=== PATIENT | female | born 1950 | race Caucasian/White ===

== ENCOUNTER 2020-11-17 12:06 | Observation (INO) | payer MEDICARE, SELFPAY ==
[2020-11-17] VITALS (14 sets, daily range): BP systolic 76–168; BP diastolic 42–74; PULSE 41–103; RESP 16–19; TEMP 36.3–37; O2SAT 94–98; BMI 29.5
--- NOTE | 2020-11-17 12:21 | EKG12_ITS ---
Test Reason : Blood Pressure : / mmHG Vent. Rate : 099 BPM Atrial Rate : 099 BPM P-R Int : 150 ms QRS Dur : 072 ms QT Int : 340 ms P-R-T Axes : 039 033 035 degrees QTc Int : 436 ms Normal sinus rhythm Normal ECG Confirmed by SUNDAR CRUZ, JOSE MANUEL ([id number]), make up editor OSCAR RAMSEY ([id number]) on 11/21/2020 1:36:59 PM Referred By: IVANA Confirmed By:JOSE MANUEL KWOK MD
--- NOTE | 2020-11-17 12:22 | ED.VIS.CHEST ---
HPI History of Present Illness Chief Complaint: Chest Pain Informant: patient Onset/Context/Timing Onset: Today Activity at onset: gradual Quality: Positive for Heaviness and Tightness Location: Substernal Current Severity: Moderate Maximum Severity: Moderate Narrative Narrative: Patient present secondary to chest pain. She states she has had chest pain all day today, but seems to be worsening as the day goes. She describes it as heavy and tight in the center of her chest. She states it then seems to go down into her abdomen somewhat. She denies shortness of breath. No previous cardiac history. She has had stress test in the past that were normal. [facility] Medical History Hyperlipidemia Hypertension Home Medications aspirin 81 mg PO DAILY 11/17/20 [History Last Taken Unknown] atorvastatin 20 mg PO QHS 11/17/20 [History Last Taken Unknown] icosapent ethyl [Vascepa] 2 g PO BID 11/17/20 [History Last Taken Unknown] lisinopril 10 mg PO DAILY 11/17/20 [History Last Taken Unknown] Allergy/AdvReac Type Severity Reaction Status Date / Time No Known Allergies Allergy Verified 11/17/20 12:07 Surgical History History of hysterectomy Social History Smoking Status: Former smoker ROS ROS ED Constitutional Constitutional ED: Denies chills or fever(s) Eyes Eyes: Denies change in vision ENT ENT ED: Denies sore throat Cardiovascular Cardiovascular: Reports chest pain Respiratory/Chest Respiratory/Chest: Denies cough or dyspnea Gastrointestinal Gastrointestinal: Reports abdominal pain; Denies diarrhea, nausea or vomiting Genitourinary Genitourinary ED: Denies dysuria Musculoskeletal Musculoskeletal: Denies back pain Integumentary Denies rash Neurologic Neurologic: Denies headache(s) or weakness Allergic/Immunologic Allergic/Immunologic ED: Denies urticaria EXAM Physical Exam Const Vital Signs: 11/17/20 12:08 11/17/20 12:12 11/17/20 12:32 Temperature 98.2 F Temperature Source Oral Pulse Rate 103 H Respiratory Rate 18 Respiratory Effort Normal Non-Labored Blood Pressure 168/74 H Blood Pressure Mean 105 Pulse Ox 97 98 Oxygen Delivery Method Room Air Room Air 11/17/20 14:45 Temperature Temperature Source Pulse Rate 70 Respiratory Rate 19 H Respiratory Effort Blood Pressure 138/59 H Blood Pressure Mean 85 Pulse Ox 97 Oxygen Delivery Method Room Air Positive well nourished and well developed General Appearance ED: well developed HEENT Reports normocephalic and head/scalp atraumatic Eyes PERRL and EOMs intact bilaterally Neck supple Chest Wall inspection of chest normal and palpation of chest normal Resp normal respiratory effort and clear to auscultation bilaterally Cardio regular rate and regular rhythm GI GI Narrative: Mild epigastric tenderness to palpation. No guarding or rebound. Hypoactive but present bowel sounds. Palpation: soft Extremity normal to inspection Neuro oriented x3 and no sensory deficits noted Sensorium / Orientation: alert Motor Exam: strength 5/5 throughout Psych mental status grossly normal Skin no rashes or lesions noted Heart Score History: Moderately Suspicious ECG: Normal Age: >/= 65 years Risk Factors: 1 or 2 Risk Factors Troponin: </= Normal Limit Score: 4 MDM MDM MDM Narrative Medical decision making narrative: Patient was given aspirin on arrival. She was given morphine and Zofran for pain. Lab work, chest x-ray, EKG obtained. Lab Data Attestation: I reviewed the patient's lab results. Labs: Laboratory Results - last 24 hr 11/17/20 11/17/20 11/17/20 12:22 12:22 12:22 WBC 13.2 H RBC 4.30 Hgb 12.7 Hct 38.8 MCV 90.2 MCH 29.5 MCHC 32.7 RDW Std Deviation 38.6 RDW Coeff of Na 11.8 Plt Count 305 MPV 9.2 Immature Gran % (Auto) 0.400 Neut % (Auto) 83.1 H Lymph % (Auto) 8.5 L Kane % (Auto) 6.9 Eos % (Auto) 0.8 Baso % (Auto) 0.3 Absolute Neuts (auto) 11.0 H Absolute Lymphs (auto) 1.12 Nucleated RBC % 0 Sodium 139 Potassium 3.8 Chloride 105 Carbon Dioxide 26.0 Anion Gap 8 BUN 19 H Creatinine 0.79 Estim Creat Clear Calc 39.50 Est GFR (MDRD) Af Amer 92 Est GFR (MDRD) Non-Af 76 BUN/Creatinine Ratio 23.9 H Glucose 121 H Calcium 9.1 Total Bilirubin 0.60 Direct Bilirubin 0.13 AST 20 ALT 34 Alkaline Phosphatase 76 Troponin I High Sens 7 Total Protein 7.4 Albumin 4.0 Globulin 3.4 Lipase 333 11/17/20 14:10 WBC RBC Hgb Hct MCV MCH MCHC RDW Std Deviation RDW Coeff of Na Plt Count MPV Immature Gran % (Auto) Neut % (Auto) Lymph % (Auto) Kane % (Auto) Eos % (Auto) Baso % (Auto) Absolute Neuts (auto) Absolute Lymphs (auto) Nucleated RBC % Sodium Potassium Chloride Carbon Dioxide Anion Gap BUN Creatinine Estim Creat Clear Calc Est GFR (MDRD) Af Amer Est GFR (MDRD) Non-Af BUN/Creatinine Ratio Glucose Calcium Total Bilirubin Direct Bilirubin AST ALT Alkaline Phosphatase Troponin I High Sens 7 Total Protein Albumin Globulin Lipase Radiography Chest X-Ray - ED: 1 View, Read by ED Physician, Normal, Heart, Lungs and Mediastinum Diagnostic Testing: Radiology Impression Chest X-Ray 11/17/20 12:31 IMPRESSION: Normal x-ray examination of the chest. Electronically Signed: Endy Liz MD at 12:46 EDT , Service support , EKG Initial EKG: Attestation: I personally reviewed and interpreted this EKG as follows: Interpretation: Sinus Rhythm (Sinus at 99 with no acute ischemia.) Follow-up EKG: Attestation: I personally reviewed and interpreted this EKG as follows: Interpretation: Sinus Rhythm (Sinus 81 with no acute ischemia.) Treatment and Re-Evaluation Comments:: Initial EKG is unremarkable. Troponin returns normal at 7. Lab work otherwise is unremarkable including LFTs and lipase. Chest x-ray per my interpretation reveals no acute abnormalities. Radiology interpretation is reviewed. On repeat exam patient states she had no significant provement after aspirin, morphine, and Zofran. At that point she is given a GI cocktail and repeat troponin obtained. Repeat troponin is negative. Patient reports no improvement with a GI cocktail. Repeat EKG at this time is unremarkable. Patient be given a dose of Dilaudid for pain control. I was discussed with hospitalist regarding observation for cycling of enzymes and further evaluation. Discharge Plan Triage Chief Complaint: Chest Pain ED Provider: Raisa Chew Dx/Rx/DC Orders Clinical Impression: Chest pain Prescriptions: No Action atorvastatin 20 mg Tablet 20 mg PO QHS RF: 0 lisinopril 10 mg Tablet 10 mg PO DAILY RF: 0 aspirin 81 mg Tablet 81 mg PO DAILY RF: 0 icosapent ethyl [Vascepa] 1 gram Capsule 2 g PO BID RF: 0 Primary Care Provider: Laura Gracia Referrals: Laura Gracia, [Primary Care Provider] - Disposition Disposition: Acute Care Hospital [facility]
[2020-11-17 12:30] LABS: Absolute Lymphocyte Count 1.12 X10^3/uL (0.83-4.51); Basophil# 0.04 X10^3/uL; Basophil% 0.3 % (0-1); Eosinophil# 0.11 X10^3/uL; Eosinophils% 0.8 % (0-5); Hematocrit 38.8 % (37-47); Hemoglobin 12.7 g/dL (12.0-15.0); Lymphocyte # 1.12 X10^3/ul (0.83-4.51); Lymphocyte % 8.5 % (19-41); Mean Corp Hgb Conc 32.7 g/dL (32-36); Mean Corpuscular Hgb 29.5 pg (27.0-32.0); Mean Corpuscular Volume 90.2 fL (81-99); Mean Platelet Vol. 9.2 fl (6.2-12.0); Monocyte# 0.91 X10^3/uL; Monocyte% 6.9 % (0-10); NRBC Flagged by Analyzer 0 % (0-5); Neutrophil # 10.98 X10^3/uL (2.7-7.7); Neutrophil % 83.1 % (47-70); Platelet Count 305 K/mm3 (150-450); RBC Distribution Width CV 11.8 % (11.6-14.6); RBC Distribution Width SD 38.6 fl (35.1-43.9); White Blood Count 13.2 K/mm3 (4.4-11.0)
--- NOTE | 2020-11-17 12:31 | RAD_ITS ---
STUDY: X-RAY CHEST REASON FOR EXAM: Female, 70 years old. Chest pain TECHNIQUE: Single AP portable view of the chest. COMPARISON: None. FINDINGS: EKG electrodes are seen. The lungs are clear and expanded. There is no demonstrated pleural abnormality. Normal size heart. Normal mediastinum and annabelle. Normal visualized pulmonary arteries. There is atherosclerotic calcification of the aortic arch with tortuosity. There are degenerative changes of the visualized thoracic spine. Normal visualized ribs, clavicles, and shoulders. There is no demonstrated abnormality of the visualized soft tissue structures of the upper abdomen. RAD/Chest 1 View (Portable) IMPRESSION: Normal x-ray examination of the chest. Electronically Signed: Endy Liz MD at 12:46 EDT , Service support ,
[2020-11-17] MEDS: Ondansetron 4 MG/2 ML Vial IV ×2 (12:32→21:35)
[2020-11-17] MEDS: Morphine 4 MG/ML Syringe IV (12:32)
[2020-11-17] MEDS: Aspirin 81 MG TAB.CHEW 324 MG PO (12:32)
[2020-11-17] MEDS: 0.9% Normal Saline 1,000 ML 150 ML IV (12:39)
[2020-11-17 12:47] LABS: AST(SGOT) 20 U/L (15-37); Alanine Aminotransfer ALT/SGPT 34 U/L (13-56); Alkaline Phosphatase 76 U/L (45-117); Bilirubin, Direct 0.13 mg/dL (0.00-0.30); Globulin 3.4 g/dL (2.2-4.2); Protein, Total 7.4 g/dL (6.4-8.2)
[2020-11-17 12:50] LABS: Anion Gap 8 (5-15); BUN 19 mg/dL (7-18); BUN/Creat Ratio 23.9 RATIO (10-20); Calcium,Total 9.1 mg/dL (8.5-10.1); Chloride 105 mmol/L (98-107); Creatinine, Serum 0.79 mg/dL (0.55-1.02); EST Glomerular Filtration Rate 76 mL/min (>60); Est Glom Filt Rate - Afr Amer 92 mL/min (>60); Glucose 121 mg/dL (74-106); Lipase 333 U/L (73-393); Potassium 3.8 mmol/L (3.5-5.1); Sodium Level 139 mmol/L (136-145); Troponin-I HS 7 pg/mL (3.0-54.0)
--- NOTE | 2020-11-17 14:05 | EKG12_ITS ---
Test Reason : Blood Pressure : / mmHG Vent. Rate : 081 BPM Atrial Rate : 081 BPM P-R Int : 164 ms QRS Dur : 072 ms QT Int : 378 ms P-R-T Axes : 042 044 034 degrees QTc Int : 439 ms Normal sinus rhythm Normal ECG Confirmed by SUNDAR CRUZ, JOSE MANUEL ([id number]), development editor OSCAR RAMSEY ([id number]) on 11/21/2020 1:37:13 PM Referred By: IVANA Confirmed By:JOSE MANUEL KWOK MD
[2020-11-17] MEDS: Mag Hydrox/Al Hydrox/Simeth 30 ML UDC PO ×2 (14:10→20:16)
[2020-11-17 14:31] LABS: Troponin-I HS 7 pg/mL (3.0-54.0)
[2020-11-17] MEDS: HYDROmorphone 0.5 MG/0.5 ML SYRINGE IV (14:53)
--- NOTE | 2020-11-17 16:00 | ECHOD_ITS ---
Reason For Study: Murmur Procedure This was a 2D Doppler, Color Flow transthoracic echocardiogram. Exam performed in department. Left Ventricle Normal left ventricle. The estimated ejection fraction is EF 55-60 %. Right Ventricle Normal right ventricle. Normal systolic function. Atria Normal left atrium. Normal right atrium. Mitral Valve There is mild mitral annular calcification. Trivial mitral valve insufficiency. Tricuspid Valve Normal tricuspid valve. Trivial tricuspid valve insufficiency. Aortic Valve Mild focal aortic valve calcification. Mild (1+) aortic valve insufficiency. Pulmonic Valve The pulmonic valve is not well visualized. Great Vessels Normal aortic root. Pericardium/Pleural No pericardial effusion. MMode/2D Measurements & Calculations LVIDd: 4.7 cm IVSd: 0.78 cm Ao root diam: 3.1 cm LVIDs: 2.7 cm LVPWd: 0.82 cm LA dimension: 3.3 cm RVDd: 3.3 cm FS: 43.1 % LAV(MOD-bp): 32.8 ml LA A4 area: 14.9 cm2 RA A4 area: 10.0 cm2 LAV(MOD-bp) Indexed: 19.3 ml/m2 LAV(MOD-sp2): 27.4 ml LAV(MOD-sp4): 37.3 ml Time Measurements MV dec time: 0.24 sec Doppler Measurements & Calculations MV E max bryon: 103.0 cm/sec Lat Peak E' Bryon: 6.4 cm/sec Med Peak E' Bryon: 6.0 cm/sec MV A max bryon: 142.4 cm/sec E/E' lat: 16.1 E/E' med: 17.2 MV E/A: 0.72 MV V2 max: 170.5 cm/sec MV P1/2t max bryon: 136.8 cm/sec Ao V2 max: 213.8 cm/sec MV max P.6 mmHg MV P1/2t: 60.3 msec Ao max P.3 mmHg MV V2 mean: 93.5 cm/sec MV dec slope: 664.7 cm/sec2 MV mean P.1 mmHg MVA(P1/2t): 3.7 cm2 MV V2 VTI: 40.3 cm AI max bryon: 380.2 cm/sec LV V1 max: 142.9 cm/sec PA V2 max: 116.5 cm/sec AI max P.8 mmHg LV V1 max P.2 mmHg AI dec slope: 311.0 cm/sec2 AI P1/2t: 358.0 msec ECHO/Echo Complete Interpretation Summary The estimated ejection fraction is EF 55-60 %. Normal LV systolic function Mild AI No prior echo to compare Ordering Physician: Samantha Vogel Referring Physician: Laura Gracia Performed By: Maykel Patton RCS
--- NOTE | 2020-11-17 16:17 | PCS.PANDOC ---
PANDEMIC DOCUMENTATION INITIATED: Date: 10/16/2020 Time: 190
--- NOTE | 2020-11-17 17:31 | HP.PCM.HOS_ITS ---
[facility] - General General Date of Admission: 11/17/20 HPI Narrative LAY BERNARD, is a 70 F who presented to the emergency department [facility] on 11/17/2020 with a chief complaint of chest pain. She reports that it started this morning when she got out of bed and describes it as heavy and in the center of her chest. It intermittently radiates to her abdomen but does not radiate to her arms and neck or jaw. She denies any relieving or exacerbating activities. She does complain of some intermittent nausea that is associated but no vomiting. She has not had any shortness of breath, fatigue, or diaphoresis. She states she walks approximately 3 miles at night and has had no symptoms while she does this. She states she has had this in the past but never quite to the intensity that she has now. She has had a stress test in the past when she has had this symptom and they have been negative. She states her most recent stress test was several years ago but she is unclear of the date. She states that she had it done at [facility]. She has a past medical history of hypertension and hyperlipidemia but no personal history of coronary disease. She does have a family history of coronary disease in her father, sibling, and nephew. Her vital signs in the emergency department were unremarkable. Her CBC shows a mild white count elevation at 13.2 but is otherwise unremarkable. Her CMP is unremarkable. Her serum troponin have been cycled and were negative x2. Her lipase is within normal limits. A chest x-ray was performed and was unremarkable. She does have a remote history of tobacco abuse. She reports she quit smoking approximately 5 years ago but did smoke 1 pack/day for approximately 25 years. To be admitted to PCU for further cardiac work-up. [facility] Medical History Hyperlipidemia Hypertension Home Medications aspirin 81 mg PO QHS 11/17/20 [History Last Taken Unknown] atorvastatin 20 mg PO QHS 11/17/20 [History Last Taken Unknown] icosapent ethyl [Vascepa] 2 g PO BID 11/17/20 [History Last Taken Unknown] lisinopril 10 mg PO QHS 11/17/20 [History Last Taken Unknown] Allergy/AdvReac Type Severity Reaction Status Date / Time No Known Allergies Allergy Verified 11/17/20 12:07 Family History (Updated 11/17/20 @ 17:[address] Samantha Vogel DO) Other CAD (coronary artery disease) Heart disease Hypertension Surgical History History of hysterectomy Social History (Updated 11/17/20 @ 17:[address] Samantha Vogel DO) Smoking Status: Heavy Smoker (>10/day) how long ago did patient quit smokin years alcohol intake: current alcohol intake frequency: holidays/special occasions only substance use type: does not use ROS Constitutional Constitutional: Denies anorexia, change in weight, chills, fatigue, fever(s), malaise, night sweats, weakness or other Eyes Eyes: Denies blurry vision, change in eye color, change in vision, discharge from eye(s), double vision, erythema, eye pain, loss of vision or other ENT HEENT: Denies abnormal hearing, dysphagia, ear pain, epistaxis, headache(s), hearing loss, nasal congestion, nasal discharge, post nasal drip, sinus pressure, sore throat or other Cardiovascular Cardiovascular: Reports chest pain; Denies claudication, dyspnea on exertion, edema, lightheadedness, orthopnea, palpitations, paroxysmal nocturnal dyspnea, rapid heart rate, syncope or other Respiratory/Chest Respiratory/Chest: Denies cough, dyspnea, excessive phlegm production, hemoptysis, productive cough, shortness of breath at rest, shortness of breath with exertion, wheezing or other Gastrointestinal Gastrointestinal: Reports nausea Genitourinary Genitourinary: Denies burning urination, difficulty urinating, dysuria, hematuria, nocturia, urinary frequency, urinary hesitancy, urinary incontinence, urinary urgency or other Musculoskeletal Musculoskeletal: Denies arthralgias, back pain, joint pain, joint stiffness, joint swelling, myalgias, neck pain or other Neurologic Neurologic: Denies abnormal gait, abnormal speech, confusion, disequilibrium, d izziness, focal weakness, headache(s), numbness, paresthesias, seizure-like activity, seizures, syncope, tingling, tremor(s) or other Psychiatric Psychiatric: Denies anxiety, depression, homicidal ideation, suicidal ideation or other Endocrine Endocrinology: Denies change in body appearance, cold intolerance, excessive sweating, heat intolerance, polydipsia, polyuria or other Hematologic/Lymphatic Hematologic/Lymphatic: Denies anemia, easy bleeding, easy bruising, lymphadenopa thy or other Allergic/Immunologic Allergic/Immunologic: Denies rhinitis, hives, eczemia, asthma or other Vital Signs Vital Signs Vital Signs: 11/17/20 12:08 11/17/20 12:12 11/17/20 12:32 Temperature 98.2 F Temperature Source Oral Pulse Rate 103 H Respiratory Rate 18 Respiratory Effort Normal Non-Labored Blood Pressure 168/74 H Blood Pressure Mean 105 Blood Pressure Source Blood Pressure Position Blood Pressure Location Pulse Ox 97 98 Oxygen Delivery Method Room Air Room Air 11/17/20 14:45 11/17/20 15:16 11/17/20 16:05 Temperature 97.8 F 97.3 F L Temperature Source Temporal Oral Pulse Rate 70 73 83 Respiratory Rate 19 H 16 18 Respiratory Effort Blood Pressure 138/59 H 129/65 H 140/57 H Blood Pressure Mean 85 86 84 Blood Pressure Source Monitor Blood Pressure Position Semi-Fowlers Blood Pressure Location Right Arm Pulse Ox 97 97 95 Oxygen Delivery Method Room Air Room Air 11/17/20 16:30 Temperature Temperature Source Pulse Rate 75 Respiratory Rate Respiratory Effort Blood Pressure Blood Pressure Mean Blood Pressure Source Blood Pressure Position Blood Pressure Location Pulse Ox Oxygen Delivery Method Weight Weight: 70.76 kg Body Mass Index (BMI) 29.5 Physical Exam Const alert, oriented x3 and no apparent distress Constitutional Narrative: Overweight, older white female sitting up in bed, at bedside, appears comfortable, nontoxic General Appearance: cooperative HEENT normocephalic, head/scalp atraumatic, hearing grossly normal bilaterally, moist oral mucous membranes and oropharynx normal; Negative for dentition normal HEENT Narrative: Dentures in place, no thrush, Mallampati 2 Mouth: oral and palatal mucosa normal Eyes PERRL, EOMs intact bilaterally and conjunctivae normal Neck no lymphadenopathy, supple, no JVD and no carotid bruits Resp normal respiratory effort, no retractions, no use of accessory muscles and clear to auscultation bilaterally Auscultation: Negative for crackles, rales, rhonchi or wheezes Cardio regular rate, regular rhythm, S1 normal heart sound, S2 normal heart sound, no rub, no gallops, no clicks and no JVD Cardio Narrative: 3 out of 6 systolic murmur GI normal to inspection, nondistended, normoactive bowel sounds, soft to palpation, non-tender and non-distended; Negative for hepatosplenomegaly Extremity normal to inspection and no clubbing, cyanosis or edema Peripheral Pulses: Yes pulses 2+ throughout Skin no rashes or lesions noted, no wounds, skin turgor normal, no jaundice, no petechiae and no mottling Neuro oriented x3, CN's II-XII intact bilaterally, moves all extremities and no focal motor deficits Sensorium / Orientation: awake, alert, oriented to person, oriented to place and oriented to time Speech: speech normal Motor Exam: strength 5/5 throughout Psych affect normal Results Lab / Micro Data Attestation: I reviewed the patient's lab results. Result Diagrams: 11/17/20 12:22 11/17/20 12:22 Labs: Laboratory Results - last 24 hr 11/17/20 12:22: Total Bilirubin 0.60, Direct Bilirubin 0.13, AST 20, ALT 34, Alkaline Phosphatase 76, Total Protein 7.4, Albumin 4.0, Globulin 3.4 11/17/20 12:22: Sodium 139, Potassium 3.8, Chloride 105, Carbon Dioxide 26.0, Anion Gap 8, BUN 19 H, Creatinine 0.79, Estim Creat Clear Calc 39.50, Est GFR (MDRD) Af Amer 92, Est GFR (MDRD) Non-Af 76, BUN/Creatinine Ratio 23.9 H, Glucose 121 H, Calcium 9.1, Troponin I High Sens 7, Lipase 333 11/17/20 12:22: WBC 13.2 H, RBC 4.30, Hgb 12.7, Hct 38.8, MCV 90.2, MCH 29.5, MCHC 32.7, RDW Std Deviation 38.6, RDW Coeff of Na 11.8, Plt Count 305, MPV 9.2, Immature Gran % (Auto) 0.400, Neut % (Auto) 83.1 H, Lymph % (Auto) 8.5 L, [place] % (Auto) 6.9, Eos % (Auto) 0.8, Baso % (Auto) 0.3, Absolute Neuts (auto) 11.0 H, Absolute Lymphs (auto) 1.12, Nucleated RBC % 0 11/17/20 14:10: Troponin I High Sens 7 Radiology Impression Chest X-Ray 11/17/20 12:31 IMPRESSION: Normal x-ray examination of the chest. Electronically Signed: Endy Liz MD at 12:46 EDT , Service support , Assessment & Plan Assessment/Plan (1) Chest pain: (2) Leukocytosis: (3) Murmur: PLAN: Chest pain -Doubt cardiac in nature with negative cardiac enzymes and patient's ability to walk 3 miles in the evening but will rule out cardiac event -Cycle cardiac enzymes -Check treadmill stress test in a.m. -Check lipids -Continue home statin -Continue aspirin Cardiac murmur -Check echocardiogram Leukocytosis -Suspect reactive -Repeat in a.m. Hyperlipidemia -Continue home atorvastatin -Check lipids -Home Vascepa on hold secondary to formulary issues Hypertension -Continue lisinopril -Monitor blood pressure Nausea -As needed Zofran DVT prophylaxis -Lovenox CODE STATUS -Full code Charges/Coding Visit Charges Inpatient E&M: 44241 Init Hosp L3
[2020-11-17 18:30] LABS: Troponin-I HS 7 pg/mL (3.0-54.0)
[2020-11-17] MEDS: Nitroglycerin (INPATIENT USE) 0.4 MG TAB.SUBL SL ×2 (21:23→21:29)
[2020-11-17] MEDS: Acetaminophen 325 MG Tablet 650 MG PO (21:33)
[2020-11-17] MEDS: Atorvastatin Calcium 20 MG Tablet PO (21:34)
[2020-11-17] MEDS: 0.9% Saline Lock 10 ML Syringe IV (21:36)
--- NOTE | 2020-11-17 22:02 | EKG12_ITS ---
Test Reason : CP Blood Pressure : / mmHG Vent. Rate : 082 BPM Atrial Rate : 082 BPM P-R Int : 168 ms QRS Dur : 070 ms QT Int : 356 ms P-R-T Axes : 046 058 044 degrees QTc Int : 415 ms Normal sinus rhythm Normal ECG When compared with ECG of 17-NOV-2020 14:38, MANUAL COMPARISON REQUIRED, DATA IS UNCONFIRMED Confirmed by SUNDAR CRUZ, JOSE MANUEL ([id number]), restaurant expeditor OSCAR RAMSEY ([id number]) on 11/21/2020 2:14:39 PM Referred By: DR ROSALES Confirmed By:JOSE MANUEL KWOK MD
[2020-11-17] MEDS: Clopidogrel Bisulfate 300 MG Tablet PO (22:57)
[2020-11-18] VITALS (7 sets, daily range): BP systolic 126–139; BP diastolic 48–61; PULSE 79–99; RESP 16–18; TEMP 36.2–37.3; O2SAT 92–95
[2020-11-18] MEDS: Acetaminophen 325 MG Tablet 650 MG PO ×2 (04:08→10:48)
--- NOTE | 2020-11-18 05:55 | EKG12_ITS ---
Test Reason : AM EKG Blood Pressure : / mmHG Vent. Rate : 088 BPM Atrial Rate : 088 BPM P-R Int : 164 ms QRS Dur : 074 ms QT Int : 356 ms P-R-T Axes : 062 062 055 degrees QTc Int : 430 ms Normal sinus rhythm Normal ECG When compared with ECG of 17-NOV-2020 21:59, MANUAL COMPARISON REQUIRED, DATA IS UNCONFIRMED Confirmed by SUNDAR CRUZ, JOSE MANUEL ([id number]), scientific publications editor OSCAR RAMSEY ([id number]) on 11/21/2020 2:10:33 PM Referred By: DR BROCK Confirmed By:JOSE MANUEL KWOK MD
[2020-11-18] MEDS: Clopidogrel Bisulfate 75 MG Tablet PO (06:19)
[2020-11-18 07:14] LABS: Absolute Lymphocyte Count 1.05 X10^3/uL (0.83-4.51); Absolute Neutrophil Count 9.8 X10^3/uL (2.0-7.7); Basophil# 0.02 X10^3/uL; Basophil% 0.2 % (0-1); Eosinophil# 0.03 X10^3/uL; Eosinophils% 0.3 % (0-5); Hemoglobin 11.6 g/dL (12.0-15.0); Lymphocyte # 1.05 X10^3/ul (0.83-4.51); Lymphocyte % 8.8 % (19-41); Mean Corp Hgb Conc 32.2 g/dL (32-36); Mean Corpuscular Hgb 29.7 pg (27.0-32.0); Mean Corpuscular Volume 92.3 fL (81-99); Mean Platelet Vol. 9.5 fl (6.2-12.0); Monocyte# 0.94 X10^3/uL; Monocyte% 7.9 % (0-10); NRBC Flagged by Analyzer 0 % (0-5); Neutrophil # 9.79 X10^3/uL (2.7-7.7); Neutrophil % 82.5 % (47-70); Platelet Count 257 K/mm3 (150-450); RBC Distribution Width CV 11.9 % (11.6-14.6); RBC Distribution Width SD 40.1 fl (35.1-43.9); White Blood Count 11.9 K/mm3 (4.4-11.0)
[2020-11-18 07:51] LABS: AST(SGOT) 18 U/L (15-37); Alanine Aminotransfer ALT/SGPT 28 U/L (13-56); Albumin, Serum 3.5 g/dL (3.2-5.0); Alkaline Phosphatase 69 U/L (45-117); Anion Gap 7 (5-15); BUN 12 mg/dL (7-18); BUN/Creat Ratio 16.2 RATIO (10-20); Calcium,Total 8.7 mg/dL (8.5-10.1); Chloride 107 mmol/L (98-107); Cholesterol 121 mg/dL (200); Creatinine, Serum 0.74 mg/dL (0.55-1.02); EST Glomerular Filtration Rate 82 mL/min (>60); Est Glom Filt Rate - Afr Amer 100 mL/min (>60); Globulin 3.6 g/dL (2.2-4.2); Glucose 123 mg/dL (74-106); High Density Lipoprotein 55 mg/dL; Magnesium 2.4 mg/dL (1.6-2.6); Phosphorus 2.8 mg/dL (2.5-4.9); Potassium 4.2 mmol/L (3.5-5.1); Protein, Total 7.1 g/dL (6.4-8.2); Sodium Level 139 mmol/L (136-145); Thyroid Stim Hormone (TSH) 0.56 uIU/mL (0.358-3.74); Triglycerides 109 mg/dL; Very Low Density Lipoprotein 22 mg/dL (5-40)
[2020-11-18] MEDS: Mag Hydrox/Al Hydrox/Simeth 30 ML UDC PO (09:34)
--- NOTE | 2020-11-18 10:39 | STRESSREP_ITS ---
Stress Test Report Treadmill myocardial perfusion stress test. Indication; 70-year-old patient with history of CAD was on medical treatment with Plavix aspirin Lipitor lisinopril presented with symptoms of chest pain Stress protocol: The patient exercised according to standard Richard protocol for 6 minutes, achieving a work level of maximum METS 7.0 The resting heart rate of 81 bpm, alex to a maximum heart rate of 148 bpm. This value represented 98% of the maximal age-predicted heart rate. The resting blood pressure of 126/62 mmHg, alex to a maximum blood pressure of 170/52 mmHg. Exercise treadmill stress test was stopped due to target heart rate achieved and also patient has symptoms of dyspnea no symptoms of chest pain reported. Resting electrocardiogram; normal sinus rhythm Stress EKG showed[, no significant change from the resting EKG, with maximum heart rate of 148 bpm Arrhythmia: No arrhythmia demonstrated Symptoms: Patient had no symptoms of chest pain, symptoms of dyspnea Blood pressure at rest: [126/62 mmHg blood pressure at the end of stress: 170/52 mmHg] Myocardial perfusion protocol. [12 mCi ]of Technetium 99m Sestamibi was injected at rest. [ 0.4 mg ] [36 mCi ]of Technetium 99m sestamibi was injected. Stress images were obtained stress a nd rest images were reconstructed and compared in the short axis vertical and horizontal long axis. Gated images were also obtained Perfusion SPECT analysis: Review of the images demonstrate normal uptake of sestamibi at rest, post stress images demonstrate similar uptake of sestamibi to the resting images, homogeneous tracer uptake With no evidence of reversible myocardial ischemia. Gated SPECT analysis: The gated ejection fraction is 82%, with hyperdynamic left ventricle Conclusion: Negative treadmill sestamibi myocardial perfusion study for reversible myocardial ischemia Hyperdynamic left ventricle. Patient has no symptoms of chest pain, symptoms of dyspnea Nikki Wang MD,FACC,[facility]
[2020-11-18] MEDS: Ondansetron 4 MG/2 ML Vial IV (10:47)
--- NOTE | 2020-11-18 11:40 | RAD_ITS ---
STUDY: X-RAY - ABDOMEN/PELVIS REASON FOR EXAM: Female, 70 years old. abdominal pain TECHNIQUE: Single AP view of the abdomen / pelvis. COMPARISON: None. FINDINGS: Normal visualized lung bases. Scoliosis. There are bilateral tubal ligation clips. There is gaseous distention of the colon, most compatible with a colonic ileus. There is no demonstrated free abdominal air. The visualized liver, spleen and kidneys are grossly normal in size and morphology. Normal soft tissue structures. There are diffuse degenerative changes of the visualized lumbar spine. RAD/Abdomen Single View (Portable) IMPRESSION: Colonic ileus. Electronically Signed: Roger Gaxiola MD at 17:01 EDT , Service support ,
[2020-11-18] MEDS: Magnesium Citrate 300 ML 150 ML PO (15:09)
--- NOTE | 2020-11-18 15:49 | CASEMGMT ---
JESSICA CM in to complete PINON form with patient. RN TANVIR explained PINON form to patient, patient voiced understanding. Patient signed PINON form and filed in chart. Patient provided with copy of signed PINON form. Patient had no further questions or concerns at this time.
--- NOTE | 2020-11-18 17:03 | PCM.DC ---
Discharge Instructions Diet Discharge Diet: No restrictions Activity Discharge Activity: Return to Normal Activity Dressing / Incision Call your doctor if you observe: - (worsening abdominal pain) Follow Up Care Test Results: Test results from this visit will be discussed in further detail at your follow-up appointment, if applicable. Discharge Plan Admission Admit Date/Time: 11/17/20 15:36 Primary Reason for Your Visit: abdominal pain. constipation. Attending Provider: Prem Daivd Primary Care Provider: Laura Gracia Instructions Patient Instructions: ED Chest Pain, Noncardiac Discharge Orders/Prescriptions Prescriptions: New polyethylene glycol 3350 [Miralax] 17 gram/dose powder 17 g PO DAILY Qty: 119 RF: 0 bisacodyl [Dulcolax (bisacodyl)] 5 mg tablet,delayed release (DR/EC) 5 mg PO DAILY PRN (Reason: constipation) 2 Days Qty: 2 RF: 0 Continued atorvastatin 20 mg Tablet 20 mg PO QHS RF: 0 lisinopril 10 mg Tablet 10 mg PO QHS RF: 0 aspirin 81 mg Tablet 81 mg PO QHS RF: 0 icosapent ethyl [Vascepa] 1 gram Capsule 2 g PO BID RF: 0 Referrals / Follow Up: Laura Gracia, [Primary Care Provider] - Within 2 Weeks Disposition Disposition (needs filled in before D/C Order can be placed): Home, Self Care
--- NOTE | 2020-11-18 17:06 | DS.PCM_ITS ---
Providers Date of Admission: 11/17/20 Primary Care Physician: Dr. Laura Gracia, DO Reason For Visit: chest pain Diagnosis Discharge Diagnosis (1) Chest pain: Status: Acute Code(s): R07.9 - Chest pain, unspecified Qualifiers: Chest pain type: unspecified Qualified Code(s): R07.9 - Chest pain, unspecified (2) Leukocytosis: Status: Acute Code(s): D72.829 - Elevated white blood cell count, unspecified Qualifiers: Leukocytosis type: unspecified Qualified Code(s): D72.829 - Elevated white blood cell count, unspecified (3) Murmur: Status: Acute Code(s): R01.1 - Cardiac murmur, unspecified (4) Ileus: Status: Acute Code(s): K56.7 - Ileus, unspecified Medications at Discharge Home Medications aspirin 81 mg PO QHS 11/17/20 atorvastatin 20 mg PO QHS 11/17/20 icosapent ethyl [Vascepa] 2 g PO BID 11/17/20 lisinopril 10 mg PO QHS 11/17/20 bisacodyl [Dulcolax (bisacodyl)] 5 mg PO DAILY PRN 2 Days #2 tab 11/18/20 polyethylene glycol 3350 [Miralax] 17 g PO DAILY #119 g 11/18/20 Hospital Course Operations None Procedures 2-D Echocardiogram and Stress test Summary of Care Provided Minutes Spent on Discharge: 32 Hospital Course: 70-year-old female presents with chest and abdominal pain. Patient underwent a cardiac work-up including stress test that was negative. Patient did have noted abdominal distention and she did have abdominal x-ray that did show an adynamic ileus. Patient did receive magnesium citrate which did give her a bowel movement. Reevaluated her abdomen is actually doing better. Discussed with patient that she had an ileus but clinically and subjectively she is feeling better. Advised patient if she is feeling worse or has intractable nausea and vomiting to notify physician or return to the emergency room. Of note, patient said that she has had this at other times before. Unclear if those instances are related with an ileus or another process. Physical Exam Const alert Resp normal respiratory effort and no retractions Cardio regular rate, regular rhythm and S2 normal heart sound GI GI Narrative: Soft nontender slightly distended. Weight / BMI Weight Weight: 70.76 kg Body Mass Index (BMI) 29.5 ABG / Lab / Microbiology Data Result Diagrams: 11/18/20 06:56 11/18/20 06:56 Laboratory: Laboratory Results - last 24 hr 11/17/20 18:06: Troponin I High Sens 7 11/18/20 06:56: WBC 11.9 H, RBC 3.90 L, Hgb 11.6 L, Hct 36.0 L, MCV 92.3, MCH 29.7, MCHC 32.2, RDW Std Deviation 40.1, RDW Coeff of Na 11.9, Plt Count 257, MPV 9.5, Immature Gran % (Auto) 0.300, Neut % (Auto) 82.5 H, Lymph % (Auto) 8.8 L, [place] % (Auto) 7.9, Eos % (Auto) 0.3, Baso % (Auto) 0.2, Absolute Neuts (auto) 9.8 H, Absolute Lymphs (auto) 1.05, Nucleated RBC % 0 11/18/20 06:56: Sodium 139, Potassium 4.2, Chloride 107, Carbon Dioxide 25.0, Anion Gap 7, BUN 12, Creatinine 0.74, Estim Creat Clear Calc 39.50, Est GFR (MDRD) Af Amer 100, Est GFR (MDRD) Non-Af 82, BUN/Creatinine Ratio 16.2, Glucose 123 H, Calcium 8.7, Phosphorus 2.8, Magnesium 2.4, Total Bilirubin 0.70, AST 18, ALT 28, Alkaline Phosphatase 69, Total Protein 7.1, Albumin 3.5, Globulin 3.6, Albumin/Globulin Ratio 1.0, Triglycerides 109, Cholesterol 121, LDL Cholesterol 44, VLDL Cholesterol 22, HDL Cholesterol 55, TSH 0.56 Radiography Diagnostic Testing: Radiology Impression Echocardiogram 11/17/20 16:00 Interpretation Summary The estimated ejection fraction is EF 55-60 %. Normal LV systolic function Mild AI No prior echo to compare Ordering Physician: Samantha Vogel Referring Physician: Laura Gracia Performed By: Maykel Patton RCS X-Ray 11/18/20 11:40 IMPRESSION: Colonic ileus. Electronically Signed: Roger Gaxiola MD at 17:01 EDT , Service support , D/C Instructions Discharge Diet: No restrictions Call your doctor if you observe: - (worsening abdominal pain) Meaningful Use Info Meaningful Use Diagnoses (Choose all that apply): None applicable Discharge Plan Admission Admit Date/Time: 11/17/20 15:36 Primary Reason for Your Visit: abdominal pain. constipation. Attending Provider: Prem David Primary Care Provider: Laura Gracia Instructions Patient Instructions: ED Chest Pain, Noncardiac Discharge Orders/Prescriptions Prescriptions: New polyethylene glycol 3350 [Miralax] 17 gram/dose powder 17 g PO DAILY Qty: 119 RF: 0 bisacodyl [Dulcolax (bisacodyl)] 5 mg tablet,delayed release (DR/EC) 5 mg PO DAILY PRN (Reason: constipation) 2 Days Qty: 2 RF: 0 Continued atorvastatin 20 mg Tablet 20 mg PO QHS RF: 0 lisinopril 10 mg Tablet 10 mg PO QHS RF: 0 aspirin 81 mg Tablet 81 mg PO QHS RF: 0 icosapent ethyl [Vascepa] 1 gram Capsule 2 g PO BID RF: 0 Referrals / Follow Up: Laura Gracia, [Primary Care Provider] - Within 2 Weeks Disposition Disposition (needs filled in before D/C Order can be placed): Home, Self Care Charges/Coding Visit Charges OBSV E&M: 51308 Observation care discharge
== END 2020-11-18 17:39 | disposition home or self-care (01) ==
LOC: ED 14:52 → PCU 15:46
PROVIDERS: Admitting Provider Internal Medicine; Emergency Provider Emergency Medicine; PCP Family Medicine
DX: R07.89 Other chest pain (principal); E78.5 Hyperlipidemia, unspecified; I10 Essential (primary) hypertension; Z79.82 Long term (current) use of aspirin; Z79.899 Other long term (current) drug therapy; Z87.891 Personal history of nicotine dependence; D72.829 Elevated white blood cell count, unspecified; R01.1 Cardiac murmur, unspecified
CPT/HCPCS: 36415; 71045; 74018; 78452; 80048; 80053; 80061; 80076; 83690; 83735; 84100; 84443; 84484; 85025; 93005; 93017; 93306; 96374; 96375; 96376; 99218; 99251; 99285; A9500; J7030; A4216; G0378; G0463; J2405